=== PATIENT | male | born 1960 | race Caucasian/White ===

== ENCOUNTER 2022-07-08 09:20 | Day surgery (SDC) | payer OTHER ==
[~2022-07-08] VITALS: Ht 175.3 cm; Wt 110.0 kg
[~2022-07-08 09:20] MED LIST: DICY20 PO; DIPATR PO; Glucophage1000 MG; LEVFLO500; LEVFLO500 PO; METF500 PO; METR500; METR500 PO; OXYACE5T PO
[2022-07-08] MEDS ORDERED: GLIM2 PO (10:56)
[2022-07-08] MEDS ORDERED: INVOKANA300 MG PO (10:56)
[2022-07-08] MEDS ORDERED: ATOR10 PO (10:57)
--- NOTE | 2022-07-08 13:33 | NUR ---
07/08/22 1333 Soy Harris CASE DONE WIOTH LOCAL ANESTHESIA ONLY, MONITORED BY [email or web address].
== END 2022-07-08 14:01 | disposition home or self-care (01) ==
LOC: ORSCSDS 09:20
PROVIDERS: Orthopaedic Surgery
PROC: 0LN80ZZ Release Left Hand Tendon, Open Approach (ICD-10-PCS; principal; 2022-07-08 11:15)
DX: M65.342 Trigger finger, left ring finger (principal); E11.9 Type 2 diabetes mellitus without complications; Z87.891 Personal history of nicotine dependence; Z79.84 Long term (current) use of oral hypoglycemic drugs; Z79.899 Other long term (current) drug therapy
CPT/HCPCS: 82947; J7120